=== PATIENT | male | born 1980 | race Caucasian/White ===

== ENCOUNTER 2020-12-23 19:14 | Emergency (ER) | payer OTHER ==
[~2020-12-23] VITALS: Ht 190.5 cm; Wt 145.2 kg
[2020-12-23 19:19] VITALS: BP 151/101
[2020-12-23] MEDS ORDERED: LOVASTATIN 20 M20 MG PO (19:25)
[2020-12-23] MEDS ORDERED: PRINIVIL20 M1 PO (19:25)
[2020-12-23] MEDS ORDERED: CEPHALEXIN500 MG PO (21:48)
== END 2020-12-23 22:16 | disposition home or self-care (01) ==
LOC: M.ERS 19:14
DX: S61.210A Laceration without foreign body of right index finger without damage to nail, initial encounter (principal); I10 Essential (primary) hypertension; Z91.013 Allergy to seafood; Z88.0 Allergy status to penicillin; W26.8XXA Contact with other sharp object(s), not elsewhere classified, initial encounter; Y93.89 Activity, other specified; Y92.89 Other specified places as the place of occurrence of the external cause; Y99.8 Other external cause status